=== PATIENT | female | born 1985 | race Caucasian/White ===

== ENCOUNTER 2019-12-29 19:39 | Emergency (ER) | payer OTHER, SELFPAY ==
[2019-12-29 20:09] LABS: Hemoglobin 12.5 g/dL (12.0-16.0); Mean Corpuscular HGB CONC 32.9 g/dL (32.0-36.0); Mean Corpuscular Hemoglobin 30.8 pg (27.0-31.0); Mean Corpuscular Volume 93.6 fL (78.0-98.0); Red Blood Cell (RBC) Count 4.07 mill/uL (4.20-5.40); White Blood Cell (WBC) Count 5.8 thou/uL (4.8-10.8)
[2019-12-29 20:10] LABS: #Basophils 0.1 thou/uL (0.0-0.2); #Eosinphils 0.4 thou/uL (0.0-0.7); #Lymphocytes 2.6 thou/uL (1.20-3.40); #Monocytes 0.4 thou/uL (0.11-0.59); #Neutrophils 2.4 thou/uL (1.40-6.50); %Eosinophils 7.1 % (0.0-10.0); %Lymphocytes 44.2 % (21.0-51.0); %Neutrophils 40.7 % (42.0-75.0); Mean Platelet Volume 7.7 fL (7.4-10.4); Platelet Count 273 thou/uL (130-400); RBC Distribution Width 10.8 % (11.5-14.5)
[2019-12-29] MEDS ORDERED: Mag-Al Plus 1200 MG/1200 MG/120 MG/30 ML UDCUP ONE (20:11)
[2019-12-29] MEDS ORDERED: Lidocaine Viscous Sol 2% 15 ml UD Cup ONE (20:11)
--- NOTE | 2019-12-29 20:15 | RAD ---
2 view chest: [12/29/2019] Comparison:None available HISTORY: Chest pain FINDINGS: Heart and mediastinal contours are grossly unremarkable. No pneumothorax or pleural fluid. No focal consolidation or alveolar edema. There is mild mid thoracic spine dextroscoliosis. IMPRESSION: No acute findings.
[2019-12-29 20:29] LABS: ALT (SGPT) 11 U/L (8-55); AST (SGOT) 15 U/L (5-34); Albumin 4.8 g/dL (3.5-5.0); Alkaline Phosphatase 68 U/L (40-110); Anion Gap 15 mmol/L (10-20); BUN (Urea Nitrogen) 10 mg/dL (7.0-18.7); Bilirubin, Total 0.4 mg/dL (0.2-1.2); Calc. Creatinine Clearance 0 mL/min (70-130); Calcium 9.1 mg/dL (7.8-10.44); Carbon Dioxide 21 mmol/L (22-29); Chloride 106 mmol/L (98-107); Estimated GFR-MDRD 63; Globulin 2.9 g/dL (2.4-3.5); Glucose 86 mg/dL (70-105); Potassium 3.8 mmol/L (3.5-5.1); Protein, Total 7.7 g/dL (6.0-8.3); Sodium 138 mmol/L (136-145)
[2019-12-29] MEDS ORDERED: Famotidine In NaCl 20 mg/50 ml Premix Bag ONE (20:51)
[2019-12-29] MEDS ORDERED: Acetaminophen 500 MG TAB ONE (20:51)
[2019-12-29] MEDS ORDERED: Meclizine HCl 25 MG TAB ONE (22:11)
== END 2019-12-29 23:48 | disposition home or self-care (01) ==
LOC: MADERS 19:39
DX: R07.9 Chest pain, unspecified (principal); H81.399 Other peripheral vertigo, unspecified ear; K21.9 Gastro-esophageal reflux disease without esophagitis; F41.9 Anxiety disorder, unspecified; Z87.891 Personal history of nicotine dependence; Z79.899 Other long term (current) drug therapy
CPT/HCPCS: 36415; 71046; 80053; 84484; 85025; 93005; 94760; 96365

== ENCOUNTER 2020-03-17 07:10 | Emergency (ER) | payer BC, SELFPAY | END 2020-03-17 08:15 | disposition home or self-care (01) | LOC: MADERS 07:10 | DX: M54.12 Radiculopathy, cervical region (principal); K21.9 Gastro-esophageal reflux disease without esophagitis; F41.9 Anxiety disorder, unspecified; Z87.891 Personal history of nicotine dependence; Z79.899 Other long term (current) drug therapy | CPT/HCPCS: 99283 ==

== ENCOUNTER 2021-11-24 12:28 | Emergency (ER) | payer BC ==
[2021-11-24] MEDS ORDERED: Sodium Chloride 0.9% 1,000 ML ONE (13:12)
[2021-11-24] MEDS ORDERED: Ketorolac Tromethamine 30 MG/ML VIAL ONE (13:12)
[2021-11-24] MEDS ORDERED: Metoclopramide HCl 10 MG/2 ML VIAL ONE (13:12)
[2021-11-24 13:26] LABS: #Eosinphils 0.4 thou/uL (0.0-0.7); #Lymphocytes 2.7 thou/uL (1.20-3.40); #Monocytes 0.4 thou/uL (0.11-0.59); %Basophils 0.9 % (0.0-1.0); %Eosinophils 6.6 % (0.0-10.0); %Lymphocytes 48.6 % (21.0-51.0); %Monocytes 6.8 % (0.0-10.0); %Neutrophils 37.2 % (42.0-75.0); Hemoglobin 11.4 g/dL (12.0-16.0); Mean Corpuscular HGB CONC 32.8 g/dL (32.0-36.0); Mean Corpuscular Hemoglobin 30.2 pg (27.0-31.0); Mean Corpuscular Volume 91.9 fL (78.0-98.0); Mean Platelet Volume 7.9 fL (7.4-10.4); Platelet Count 311 thou/uL (130-400); Red Blood Cell (RBC) Count 3.78 mill/uL (4.20-5.40); White Blood Cell (WBC) Count 5.4 thou/uL (4.8-10.8)
[2021-11-24 13:43] LABS: ALT (SGPT) 10 U/L (8-55); AST (SGOT) 13 U/L (5-34); Albumin 4.4 g/dL (3.5-5.0); Alkaline Phosphatase 69 U/L (40-110); Anion Gap 12 mmol/L (10-20); BHCG - Serum Negative (NEGATIVE); BUN (Urea Nitrogen) 6 mg/dL (7.0-18.7); Bilirubin, Total 0.3 mg/dL (0.2-1.2); Calc. Creatinine Clearance 0 mL/min (70-130); Calcium 8.9 mg/dL (7.8-10.44); Carbon Dioxide 23 mmol/L (22-29); Chloride 108 mmol/L (98-107); Estimated GFR 90; Globulin 3.3 g/dL (2.4-3.5); Glucose 87 mg/dL (70-105); Potassium 3.8 mmol/L (3.5-5.1); Pregs Control Background? CLEAR/WHITE (CLR/WHITE); Pregs Control Bar Appear? YES (CONTROL BAR); Protein, Total 7.7 g/dL (6.0-8.3); Sodium 139 mmol/L (136-145)
[2021-11-24 13:44] LABS: SARS-CoV-2 NAA Rapid Test Not Detected (NotDetected)
== END 2021-11-24 14:18 | disposition home or self-care (01) ==
LOC: MADERS 12:28
DX: J00 Acute nasopharyngitis [common cold] (principal); R51.9 Headache, unspecified; Z20.822 Contact with and (suspected) exposure to COVID-19; K21.9 Gastro-esophageal reflux disease without esophagitis; Z87.891 Personal history of nicotine dependence; Z79.899 Other long term (current) drug therapy
CPT/HCPCS: 36415; 71045; 80053; 84703; 85025; 93005; 96365; 96375; J1885; J2765; J7050; U0002